=== PATIENT | male | born 1995 | race Caucasian/White ===

== ENCOUNTER 2021-09-21 20:08 | Inpatient (IN) | payer SELFPAY ==
[2021-09-21 20:32] VITALS: BMI 19.8
[2021-09-21] MEDS ORDERED: LACTATED RINGERS SOLUTION 1000 ML INFUS.BAG IV ONE (21:24)
[2021-09-21] MEDS ORDERED: ACETAMINOPHEN 1000 MG/100 ML VIAL IVPB ONE (21:46)
[2021-09-21 22:01] LABS: EPI CELLS 11 /uL (0-25.1); HYALINE CASTS 4 /uL (0-3.1); URINE APPEARANCE CLEAR; URINE BACTERIA 4 /uL (0-1359); URINE BILIRUBIN NEGATIVE (NEGATIVE); URINE COLOR DK YELLOW; URINE GLUCOSE (UA) NEGATIVE (NEGATIVE); URINE KETONE 2+ (NEGATIVE); URINE LEUK ESTERASE NEGATIVE (NEGATIVE); URINE NITRITE NEGATIVE (NEGATIVE); URINE PROTEIN 1+ (NEGATIVE); URINE RBC 4 /uL (0-23.9); URINE WBC 9 /uL (0-25.8)
[2021-09-21 22:13] LABS: EOS % 0.1 % (0-4.5); HEMATOCRIT 49.9 % (35.4-49); HEMOGLOBIN 17.3 GM/dL (11.7-16.9); LYMPH % 6.6 % (8-40); MCH 29.6 pg (25.7-33.7); MCHC 34.7 g/dl (32.0-35.9); MEAN CELL VOLUME 85.3 fl (80-96); MEAN PLT VOLUME 8.9 fl (7.5-11.1); MONO % 7.5 % (3.8-10.2); NEUT % 85.8 % (42.8-82.8); PLATELET COUNT 252 10^3/uL (134-434); RBC 5.85 M/mm3 (4.00-5.60); RDW 14.3 % (11.9-15.9); WHITE BLOOD COUNT 18.7 K/mm3 (4.0-10.0)
[2021-09-21 22:21] LABS: INR 1.02 (0.83-1.09); PROTHROMBIN TIME (PATIENT) 11.4 SEC (9.7-13.0)
[2021-09-21 22:24] LABS: ACTIVATED PTT 30.7 SECONDS (25.2-36.5)
[2021-09-21 23:08] LABS: ALBUMIN 4.5 g/dl (3.4-5.0); BILIRUBIN,TOTAL 0.8 mg/dL (0.2-1); BLOOD UREA NITROGEN 16.4 mg/dL (7-18); CALCIUM 9.2 mg/dL (8.5-10.1); CREATININE 0.6 mg/dL (0.55-1.3); TOT PROT 7.8 g/dl (6.4-8.2)
[2021-09-21] MEDS ORDERED: morphine CARPU-JECT 2 MG/1 ML DISP.SYRIN IVPUSH ONE (23:17)
[2021-09-21] MEDS ORDERED: morphine SULFATE 4 MG/ML VIAL ONE (23:22)
[2021-09-22] MEDS ORDERED: morphine CARPU-JECT 2 MG/1 ML DISP.SYRIN IVPUSH ONE (02:45)
[2021-09-22] MEDS ORDERED: morphine SULFATE 4 MG/ML VIAL ONE (02:56)
[2021-09-22] MEDS ORDERED: ONDANSETRON 8 MG TABLET (FP) PO PRN (04:58)
[2021-09-22] MEDS ORDERED: ACETAMINOPHEN 325 MG TABLET (FP) PO PRN (04:59)
[2021-09-22] MEDS ORDERED: ACETAMINOPHEN 325 MG TABLET (FP) ONE (05:41)
[2021-09-22] MEDS: SODIUM CHLORIDE 1,000 ML IV SCH ×2 (05:48→16:02)
[2021-09-22 07:13] LABS: BASO % 0.2 % (0-2.0); EOS % 0.5 % (0-4.5); HEMATOCRIT 45.2 % (35.4-49); HEMOGLOBIN 15.7 GM/dL (11.7-16.9); LYMPH % 9.5 % (8-40); MCH 29.8 pg (25.7-33.7); MCHC 34.7 g/dl (32.0-35.9); MEAN CELL VOLUME 85.9 fl (80-96); MEAN PLT VOLUME 9.1 fl (7.5-11.1); MONO % 9.6 % (3.8-10.2); NEUT % 80.2 % (42.8-82.8); PLATELET COUNT 205 10^3/uL (134-434); RBC 5.26 M/mm3 (4.00-5.60); RDW 14.6 % (11.9-15.9); WHITE BLOOD COUNT 13.6 K/mm3 (4.0-10.0)
[2021-09-22] MEDS ORDERED: cefTRIAXone SODIUM 1 GM VIAL ONE (07:46)
[2021-09-22] MEDS ORDERED: DEXTROSE 5%-WATER - 50 ML IVPB ONE (07:46)
[2021-09-22] MEDS: CEFTRIAXONE 1 GM in DEXTROSE 5%-WATER - 50 ML IVPB SCH (07:58)
[2021-09-22 09:26] LABS: ALBUMIN 3.6 g/dl (3.4-5.0); BILIRUBIN,TOTAL 0.6 mg/dL (0.2-1); BLOOD UREA NITROGEN 12.8 mg/dL (7-18); CALCIUM 8.3 mg/dL (8.5-10.1); CREATININE 0.6 mg/dL (0.55-1.3); MAGNESIUM 2.3 mg/dL (1.8-2.4); PHOSPHOROUS 2.3 mg/dL (2.5-4.9); TOT PROT 6.3 g/dl (6.4-8.2)
[2021-09-22] MEDS ORDERED: ENOXAPARIN NA (PORCINE) 40 MG/0.4 ML DISP.SYRIN SQ SCH (10:00)
[2021-09-22] MEDS ORDERED: NAPH,MB-DB/K PH,MBDB POWDER PACKET PO ONE (11:01)
[2021-09-22] MEDS: ACETAMINOPHEN 1000 MG/100 ML VIAL IVPB PRN ×2 (11:53→20:07)
[2021-09-22] MEDS: NICOTINE 7 MG/24 HOURS TOPICAL PATCH TD SCH (16:02)
[2021-09-22] MEDS ORDERED: MELATONIN 5 MG TABLETS PO ONE (22:02)
[2021-09-22] MEDS ORDERED: oxyCODONE HCL 5 MG TABLET PO ONE (22:02)
[2021-09-23] MEDS: SODIUM CHLORIDE 1,000 ML IV SCH ×2 (02:50→05:57)
[2021-09-23] MEDS: ACETAMINOPHEN 1000 MG/100 ML VIAL IVPB PRN (05:52)
[2021-09-23] MEDS ORDERED: oxyCODONE HCL 5 MG TABLET PO ONE (06:25)
[2021-09-23 08:29] LABS: BASO % 0.3 % (0-2.0); EOS % 0.9 % (0-4.5); HEMATOCRIT 41.5 % (35.4-49); HEMOGLOBIN 14.2 GM/dL (11.7-16.9); MCH 29.8 pg (25.7-33.7); MCHC 34.3 g/dl (32.0-35.9); MEAN CELL VOLUME 86.8 fl (80-96); MEAN PLT VOLUME 9.2 fl (7.5-11.1); MONO % 6.7 % (3.8-10.2); NEUT % 78.1 % (42.8-82.8); PLATELET COUNT 173 10^3/uL (134-434); RBC 4.78 M/mm3 (4.00-5.60); RDW 14.1 % (11.9-15.9); WHITE BLOOD COUNT 7.7 K/mm3 (4.0-10.0)
[2021-09-23 08:50] LABS: ALBUMIN 3.2 g/dl (3.4-5.0); BLOOD UREA NITROGEN 17.3 mg/dL (7-18); CALCIUM 7.9 mg/dL (8.5-10.1)
[2021-09-23 08:51] LABS: MAGNESIUM 2.1 mg/dL (1.8-2.4)
[2021-09-23 08:53] LABS: CREATININE 0.5 mg/dL (0.55-1.3)
[2021-09-23 08:54] LABS: BILIRUBIN,TOTAL 0.5 mg/dL (0.2-1); TOT PROT 5.6 g/dl (6.4-8.2)
[2021-09-23] MEDS ORDERED: DEXTROSE 5%-WATER - 50 ML IVPB ONE (09:00)
[2021-09-23] MEDS ORDERED: cefTRIAXone SODIUM 1 GM VIAL ONE (09:00)
[2021-09-23] MEDS: CEFTRIAXONE 1 GM in DEXTROSE 5%-WATER - 50 ML IVPB SCH (10:11)
[2021-09-23] MEDS: NICOTINE 7 MG/24 HOURS TOPICAL PATCH TD SCH (10:12)
[2021-09-23] MEDS: D5-1/2NS+10 MEQ KCL - 10 MEQ/1,000 ML INFUS.BAG IV SCH ×2 (10:30→22:15)
[2021-09-23] MEDS ORDERED: IBUPROFEN 400 MG TABLET (FP) PO ONE (16:01)
[2021-09-23] MEDS: ACETAMINOPHEN 325 MG TABLET (FP) PO PRN (18:57)
[2021-09-23] MEDS: oxyCODONE HCL 5 MG TABLET PO PRN (18:58)
[2021-09-23 23:30] VITALS: BP 113/74; PULSE 56; TEMP 97.9
[2021-09-24] MEDS: oxyCODONE HCL 5 MG TABLET PO PRN (03:19)
[2021-09-24] MEDS: ACETAMINOPHEN 325 MG TABLET (FP) PO PRN (05:12)
[2021-09-24] MEDS: SODIUM CHLORIDE 1,000 ML IV SCH (05:17)
[2021-09-24] MEDS ORDERED: MELATONIN 1 MG TABLET PO SCH (22:00)
== END 2021-09-24 06:45 | disposition left against medical advice (07) | DRG 249 ==
LOC: JER 20:08 → JERBED 09-22 → J6S 09-22 06:23
PROVIDERS: ADMIT Internal Medicine; ATTEND Internal Medicine
DX: A09 Infectious gastroenteritis and colitis, unspecified (principal); U07.1 COVID-19; K92.1 Melena; Z53.29 Procedure and treatment not carried out because of patient's decision for other reasons; K04.7 Periapical abscess without sinus
CPT/HCPCS: 36415; 74177-TC; 80053; 81003; 82272; 83605; 83631; 83690; 83735; 83993; 84100; 85025; 85610; 85651; 85730; 86140; 86850; 86900; 86901; 87045; 87046; 87086; 87177; 87209; 93005; 93010; 99285-25; C9803; J0131; U0003; U0005